=== PATIENT | female | born 1955 | race Caucasian/White ===

== ENCOUNTER 2021-08-01 00:28 | Emergency (ER) | payer OTHER ==
[~2021-08-01] VITALS: Ht 157.5 cm; Wt 78.5 kg
[2021-08-01 00:30] VITALS: BP 192/93
[2021-08-01] MEDS ORDERED: ONDANSETRON 4 MG/2 ML VIAL IVP ONE (00:45)
[2021-08-01] MEDS ORDERED: MORPHINE SULFATE 4 MG/ML SYR IVP ONE (00:45)
[2021-08-01 01:04] LABS: BASOPHILS % (AUTO) 0.2 % (0.0-2.0); EOSINOPHILS % (AUTO) 0.8 % (0.0-4.0); HEMATOCRIT 34.4 % (36-48); HEMOGLOBIN 11.7 g/dL (12.0-16.0); LYMPHOCYTES % (AUTO) 18.8 % (20.5-51.1); MEAN CORPUSCULAR HEMOGLOBIN 33 pg (27-31); MEAN CORPUSCULAR HGB CONC 34 g/dL (33-37); MEAN CORPUSCULAR VOLUME 96.6 fL (80-94); MONOCYTES # (AUTO) 0.3 K/uL (0.8-1.0); MONOCYTES % (AUTO) 6.4 % (1.7-9.3); NEUTROPHILS # (AUTO) 3.9 K/uL (1.8-7.7); NEUTROPHILS % (AUTO) 73.8 % (42.2-75.2); PLATELET COUNT (AUTO) 209 K/uL (140-450); RED BLOOD CELL COUNT(AUTO) 3.56 MIL/uL (4.20-5.40); RED CELL DISTRIBUTION WIDTH 13.2 % (11.6-13.7); WHITE BLOOD COUNT (AUTO) 5.3 K/uL (4.8-10.8)
[2021-08-01 01:13] LABS: ANION GAP 14.8 (8-16); CARBON DIOXIDE 23.4 mmol/L (21-32); CREATININE 1.3 mg/dL (0.6-1.3); POTASSIUM 4.2 mmol/L (3.5-5.1)
[2021-08-01 01:19] LABS: ALBUMIN 3.9 g/dL (3.4-5.0); BILIRUBIN,DIRECT 0.1 mg/dL (0.0-0.3); TOTAL BILIRUBIN 0.3 mg/dL (0.0-1.0)
[2021-08-01 02:26] LABS: APPEARANCE,URINE SL CLOUDY (CLEAR); BILIRUBIN,URINE NEGATIVE (NEGATIVE); BLOOD, URINE TRACE-I (NEGATIVE); COLOR,URINE YELLOW (YELLOW); LEUKOCYTE ESTERASE ,URINE TRACE (NEGATIVE); NITRITE, URINE NEGATIVE (NEGATIVE); PH,URINE 5.5 (5.0-9.0); UGLUCOSE NEGATIVE (NEGATIVE)
[2021-08-01 02:36] LABS: RBC,URINE 0-5 /HPF (0-5)
[2021-08-01] MEDS ORDERED: CEPH-588 PO (04:11)
[2021-08-01 04:26] VITALS: BP 166/59
[2021-08-09] MEDS ORDERED: PANT40EC56 PO (11:57)
[2021-08-09] MEDS ORDERED: ATOR20TA40 PO (11:57)
[2021-08-09] MEDS ORDERED: ASPI-1856 PO (11:57)
[2021-08-09] MEDS ORDERED: LISI20TA29 PO (11:57)
[2021-08-09] MEDS ORDERED: METO25TA PO (11:57)
[2021-08-09] MEDS ORDERED: AMOX-1000 PO (12:04)
== END 2021-08-01 04:26 | disposition home or self-care (01) ==
LOC: MED 00:28
DX: N39.0 Urinary tract infection, site not specified (principal); E11.9 Type 2 diabetes mellitus without complications; I10 Essential (primary) hypertension; Z98.890 Other specified postprocedural states
CPT/HCPCS: 36415; 71045; 76705; 80048; 80076; 81001; 83690; 84484; 85025; 87086; 93005; 96374; 96375; 99285; J2270; J2405; Q0092

== ENCOUNTER 2021-08-16 18:51 | Inpatient (IN) | payer OTHER, SELFPAY ==
[~2021-08-16] VITALS: Ht 157.5 cm; Wt 78.0 kg
[~2021-08-16 18:51] MED LIST: AMOX-1000 PO; ASPI-1856 PO; ATOR20TA40 PO; LISI20TA29 PO; METO25TA PO; PANT40EC56 PO
--- NOTE | 2021-08-16 19:01 | NUR ---
BIBA TO BED 1
--- NOTE | 2021-08-16 19:15 | NUR ---
Pt report given to JOSH LARES. Transfer of care at this time.
--- NOTE | 2021-08-16 19:20 | NUR ---
66 Y/O FEMALE BIBA FROM HOME CHEST PAIN X3 HOURS. PER EMS GAVE NITRO 0.2 TWICE AND 324 ASPIRIN. PAIN LEVEL WENT FROM 6/10 TO 4/10. FEVER 100.1F. DENIES V/D, ADMITS TO NAUSEA AND PRODUCTIVE COUGH. PT. RATES PAIN AT 6/10 ON THE PAIN SCALE AT THIS TIME. PT. ALSO STATES PAIN RADIATES TO BACK SIDE AND "FEELS LIKE I HAVE A BRUISE ON MY BACK." UPON ASSESSMENT, PT HAS SURIGCAL SCAR OF 5CM ON ABDOMEN WITH SEROUS FLUID. AAOX4;VSS MEDHX: DM, PNA, COPD, GALLBLADDER REMOVAL NKA
--- NOTE | 2021-08-16 19:20 | NUR ---
TAMMIE CRENSHAW AT BEDSIDE FOR MEDICAL EXAMINATION
--- NOTE | 2021-08-16 19:30 | NUR ---
PT. GIVEN COLD COMPRESS TO THE FOREHEAD, NECK AND ARMPITS TO HELP LOWER TEMPERATURE. WILL REASSESS TEMP. IN 30 MINS.
--- NOTE | 2021-08-16 19:57 | NUR ---
EKG AT BEDSIDE
--- NOTE | 2021-08-16 20:00 | NUR ---
LAB AT BEDSIDE
--- NOTE | 2021-08-16 20:02 | NUR ---
PER ERMD 12 LEAD WAS DONE ON PT AND CAME BACK SINUS ARRHYTHIMA AT 81 HR.
[2021-08-16] MEDS ORDERED: KETOROLAC 15 MG/ML VIAL IVP ONE (20:10)
--- NOTE | 2021-08-16 20:20 | NUR ---
PT. STATES "I CAN'T GO RIGHT NOW" WHEN ASKED ABOUT GIVING URINE SAMPLE
[2021-08-16 20:28] LABS: BASOPHILS % (AUTO) 0.1 % (0.0-2.0); EOSINOPHILS # (AUTO) 0.1 K/uL (0-0.4); EOSINOPHILS % (AUTO) 0.7 % (0.0-4.0); HEMATOCRIT 28.9 % (36-48); HEMOGLOBIN 9.5 g/dL (12.0-16.0); LYMPHOCYTES % (AUTO) 8.9 % (20.5-51.1); MEAN CORPUSCULAR HEMOGLOBIN 32 pg (27-31); MEAN CORPUSCULAR HGB CONC 33 g/dL (33-37); MONOCYTES # (AUTO) 0.6 K/uL (0.8-1.0); MONOCYTES % (AUTO) 5.7 % (1.7-9.3); NEUTROPHILS # (AUTO) 9.6 K/uL (1.8-7.7); NEUTROPHILS % (AUTO) 84.6 % (42.2-75.2); PLATELET COUNT (AUTO) 632 K/uL (140-450); RED BLOOD CELL COUNT(AUTO) 3.01 MIL/uL (4.20-5.40); RED CELL DISTRIBUTION WIDTH 12.6 % (11.6-13.7); WHITE BLOOD COUNT (AUTO) 11.3 K/uL (4.8-10.8)
--- NOTE | 2021-08-16 20:37 | NUR ---
RECHECKED ORAL TEMP. = 99.0
[2021-08-16 20:40] LABS: ALBUMIN 2.3 g/dL (3.4-5.0); ANION GAP 14.1 (8-16); CARBON DIOXIDE 26.3 mmol/L (21-32); CREATININE 0.9 mg/dL (0.6-1.3); POTASSIUM 4.4 mmol/L (3.5-5.1); TOTAL BILIRUBIN 0.2 mg/dL (0.0-1.0)
--- NOTE | 2021-08-16 20:46 | NUR ---
PT. AMBULATED TO BATHROOM WITH EVEN AND STEADY GAIT
--- NOTE | 2021-08-16 20:50 | NUR ---
URINE SAMPLE COLLECTED AND WALKED TO LAB
[2021-08-16 21:03] LABS: APPEARANCE,URINE CLEAR (CLEAR); BILIRUBIN,URINE 1+ (NEGATIVE); BLOOD, URINE NEGATIVE (NEGATIVE); COLOR,URINE YELLOW (YELLOW); LEUKOCYTE ESTERASE ,URINE NEGATIVE (NEGATIVE); NITRITE, URINE NEGATIVE (NEGATIVE); UGLUCOSE NEGATIVE (NEGATIVE)
[2021-08-16] MEDS ORDERED: FAMOTIDINE 20 MG/2 ML VIAL IVP ONE (21:20)
--- NOTE | 2021-08-16 21:29 | NUR ---
PT. TAKEN TO CT VIA ANTONIO
[2021-08-16] MEDS ORDERED: MORPHINE SULFATE 4 MG/ML SYR IVP ONE (22:30)
[2021-08-16] MEDS ORDERED: MORPHINE SULFATE 2 MG/ML SYR IVP PRN (22:45)
[2021-08-16] MEDS ORDERED: ONDANSETRON 4 MG/2 ML VIAL IVP PRN (22:45)
--- NOTE | 2021-08-16 22:45 | NUR ---
ELISA SWAB COLLECTED AND HANDED TO YAYA FROM LAB
[2021-08-16] MEDS ORDERED: PIPERACILLIN/TAZOBACTAM 3.375 GM VIAL IV ONE (23:31)
[2021-08-16] MEDS: PIPERACILLIN/TAZOBACTAM 3.375 GM in DEXTROSE 5% 50 ML IV SCH (23:43)
--- NOTE | 2021-08-17 01:38 | NUR ---
RECHECK ORAL TEMP = 98.8
--- NOTE | 2021-08-17 04:43 | NUR ---
RECHECKED ORAL TEMP = 99.3. GIVEN COLD COMPRESS TO THE FOREHEAD AND ARMPITS TO REDUCE TEMPERATURE
[2021-08-17] MEDS ORDERED: PIPERACILLIN/TAZOBACTAM 3.375 GM VIAL IV ONE (05:15)
[2021-08-17] MEDS: PIPERACILLIN/TAZOBACTAM 3.375 GM in DEXTROSE 5% 50 ML IV SCH (05:26)
--- NOTE | 2021-08-17 05:28 | NUR ---
LAB AT BEDSIDE
--- NOTE | 2021-08-17 05:49 | NUR ---
PT. AMBULATED TO BATHROOM WITH EVEN AND STEADY GAIT
--- NOTE | 2021-08-17 06:00 | NUR ---
CALLED DR. LONDONO TO UPDATE ON PT. TRENDING TEMPERATURE OF 99.6. NEW ORDERS GIVEN OF IVP TORADOL 30MG PRN Q6HRS
[2021-08-17] MEDS ORDERED: KETOROLAC 30 MG/ML VIAL ONE (06:04)
[2021-08-17] MEDS ORDERED: KETOROLAC 30 MG/ML VIAL IVP PRN ×2 (06:05→16:05)
[2021-08-17 06:27] LABS: ALBUMIN 2.1 g/dL (3.4-5.0); CARBON DIOXIDE 25.7 mmol/L (21-32); CHOL/HDL RATIO 3.1 (1-4.5); POTASSIUM 4.7 mmol/L (3.5-5.1); TOTAL BILIRUBIN 0.2 mg/dL (0.0-1.0)
[2021-08-17 06:38] LABS: BASOPHILS % (AUTO) 0.1 % (0.0-2.0); EOSINOPHILS # (AUTO) 0.1 K/uL (0-0.4); EOSINOPHILS % (AUTO) 1.1 % (0.0-4.0); HEMATOCRIT 25.9 % (36-48); HEMOGLOBIN 8.6 g/dL (12.0-16.0); LYMPHOCYTES % (AUTO) 10.3 % (20.5-51.1); MEAN CORPUSCULAR HEMOGLOBIN 32 pg (27-31); MEAN CORPUSCULAR HGB CONC 33 g/dL (33-37); MEAN CORPUSCULAR VOLUME 95.5 fL (80-94); MONOCYTES # (AUTO) 0.8 K/uL (0.8-1.0); MONOCYTES % (AUTO) 8.1 % (1.7-9.3); NEUTROPHILS # (AUTO) 7.8 K/uL (1.8-7.7); NEUTROPHILS % (AUTO) 80.4 % (42.2-75.2); PLATELET COUNT (AUTO) 459 K/uL (140-450); RED BLOOD CELL COUNT(AUTO) 2.72 MIL/uL (4.20-5.40); RED CELL DISTRIBUTION WIDTH 12.6 % (11.6-13.7); WHITE BLOOD COUNT (AUTO) 9.7 K/uL (4.8-10.8)
--- NOTE | 2021-08-17 06:47 | NUR ---
RECHECKED ORAL TEMP. = 98.5
--- NOTE | 2021-08-17 07:12 | NUR ---
Report and continuation of care received from ARNAUD Escalera.
--- NOTE | 2021-08-17 07:12 | NUR ---
REPORT AND TRANSFER OF CARE ENDORSED TO ARNAUD CASAS.
[2021-08-17] MEDS ORDERED: POTASSIUM CHLORIDE 10 MEQ TABER PO PRN (08:00)
[2021-08-17] MEDS ORDERED: DOCUSATE SODIUM 100 MG GELCAP PO PRN (08:00)
[2021-08-17] MEDS ORDERED: ZOLPIDEM 5 MG TAB PO PRN (08:00)
[2021-08-17] MEDS ORDERED: SODIUM PHOS / POTASSIUM PHOS 1 PKT PDR PO PRN (08:00)
[2021-08-17] MEDS ORDERED: ACETAMINOPHEN 325 MG TAB PO PRN (08:00)
[2021-08-17] MEDS ORDERED: LORazepam 2 MG/ML VIAL IM/IVP PRN (08:00)
[2021-08-17] MEDS ORDERED: HYDROcodone/APAP 5/325 MG 1 TAB TAB PO PRN (08:00)
[2021-08-17] MEDS ORDERED: MAG SULF 2000 MG/WATER PREMIX 50 ML IV PRN (08:00)
--- NOTE | 2021-08-17 08:32 | NUR ---
Spoke with Epifanio, Nuclear Medicine from [facility] who states to keep her NPO, opioid for pain control OK. ETA for scan this afternoon to evening.
[2021-08-17] MEDS: DEXT 5% / NACL 0.45% 1,000 ML IV SCH ×2 (08:47→18:02)
--- NOTE | 2021-08-17 09:30 | NUR ---
Patient with "dry, lingering cough." Advised to cough up secretions as needed.
[2021-08-17 09:59] LABS: PROTHROMBIN TIME 10.7 secs (10.8-13.4)
[2021-08-17 10:09] LABS: CHOL/HDL RATIO 3.2 (1-4.5); FREE T4 (FREE THYROXINE) 1.2 ng/dL (0.76-1.46); PHOSPHORUS 3.9 mg/dL (2.5-4.9); THYROID STIMULATING HORMONE 1.84 uIU/mL (0.34-3.74)
[2021-08-17] MEDS ORDERED: DEXTROSE 50% 50 ML SYR IVP PRN (10:10)
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
--- NOTE | 2021-08-17 10:45 | NUR ---
Oral T 99.3
--- NOTE | 2021-08-17 11:02 | NUR ---
Patient disconnected from clinical research monitor and IVF, ambulated to restroom with steady/even gait.
--- NOTE | 2021-08-17 11:35 | NUR ---
Patient states 6/10 pain while coughing; requested Morphine IVP. PRN orders to be given.
--- NOTE | 2021-08-17 11:55 | NUR ---
Abdominal pad applied to surgical wound; reinforced with abdominal binder. Patient teaching of coughing firmly and holding abd site when coughing; verbalizes understanding.
[2021-08-17] MEDS: BLOOD GLUCOSE MONITORING 1 DEV DEV FS SCH ×3 (11:59→21:00)
[2021-08-17] MEDS: MORPHINE SULFATE 2 MG/ML SYR IVP PRN ×2 (11:59→23:14)
--- NOTE | 2021-08-17 12:00 | NUR ---
+ relief to pain; remains 0/10 at this time.
[2021-08-17] MEDS ORDERED: VANCOMYCIN PER PHARMACY MC PRN (12:20)
[2021-08-17] MEDS ORDERED: MEROPENEM 1,000 MG in NACL 0.9% 100 ML IV SCH (13:30)
[2021-08-17] MEDS ORDERED: MEROPENEM 1,000 MG VIAL IV ONE (14:37)
[2021-08-17] MEDS: MEROPENEM 1,000 MG in NACL 0.9% 100 ML IV SCH ×2 (15:00→21:36)
--- NOTE | 2021-08-17 15:29 | NUR ---
RECEIVED REPORT FROM ER NURSE. AWAITING FOR PATIENT TO ARRIVE.
--- NOTE | 2021-08-17 15:30 | NUR ---
Report given to ARNAUD Vitale. ETA 5-10 minutes
--- NOTE | 2021-08-17 15:45 | NUR ---
RECEIVED PATIENT FROM ER NURSE. PT ADMITTED FOR POST SURGICAL INFECTION. AOX4, ABLE TO MAKE NEEDS KNOWN. RESPIRATIONS EVEN AND UNLABORED. NO DISTRESS NOTED. SKIN IS NON-INTACT. NOTED SURGICAL SITE ON ABDOMEN WITH CLOUDY DRAINAGE NOTED. REINFORCED WITH DRESSING. IV SITE ON LFA 22G INTACT AND PATENT INFUSING FLUIDS WELL. ABD IS SOFT, FLAT, AND NON-DISTENDED. BOWEL SOUNDS ACTIVE IN ALL QUADRANTS. ABLE TO AMBULATE. PLAN OF CARE DISCUSSED. SAFETY PRECAUTIONS IN PLACE. CALL LIGHT WITHIN REACH. WILL CONTINUE TO MONITOR.
--- NOTE | 2021-08-17 15:50 | NUR ---
Patient will be admitted to care of Telemetry. Admited to Dr. Pulliam. Will go to room 120B. Belongings list completed. Report to ARNAUD Vitale.
[2021-08-17 16:00] VITALS: BP 125/59
[2021-08-17] MEDS: VANCOMYCIN 1,000 MG in DEXTROSE 5% 250 ML IV SCH (16:00)
--- NOTE | 2021-08-17 16:31 | NUR ---
PATIENT COMPLAINED OF FERGUSON 3/10. ADMINISTERED PRN PAIN MEDICATIONS PER MD ORDERED.
[2021-08-17] MEDS: INSULIN LISPRO SLIDING SCALE 100 UNITS/ML VIAL SUBQ PRN (17:44)
--- NOTE | 2021-08-17 19:30 | NUR ---
ENDORSED TO WORD PROCESSOR TECHNICIAN NURSE FOR CONTINUITY OF CARE. PT IS STABLE.
[2021-08-17 20:00] VITALS: BP 107/59
[2021-08-17] MEDS: METOPROLOL 25 MG TAB PO SCH (21:37)
[2021-08-18] VITALS: BP 108/59
--- NOTE | 2021-08-18 02:38 | NUR ---
PATIENT AWAKE ALERT PATIENT NPO HAS IVF INFUSING AT 100 HOUR D51/2 NS LUNG DIMINISH HAS COUGH. HAS HEAL WOUND WITH SOME DRAINAGE AT UPPER ABDOMEN. HAS DRSG TO SITE. PATIENT SAID WHEN COUGH HAS PAIN. MEDICATED WITH MORPHINE 2 MG IVP. AT 2314. BLOOD SUGAR 127 NO COVERAGE. NO DISTRESS NOTED PATIENT ON MONITOR SINUS.
[2021-08-18 04:00] VITALS: BP 110/62
[2021-08-18] MEDS: MORPHINE SULFATE 2 MG/ML SYR IVP PRN ×2 (05:20→19:07)
[2021-08-18] MEDS: DEXT 5% / NACL 0.45% 1,000 ML IV SCH ×2 (05:20→14:10)
[2021-08-18 06:16] LABS: BASOPHILS % (AUTO) 0.2 % (0.0-2.0); EOSINOPHILS # (AUTO) 0.2 K/uL (0-0.4); EOSINOPHILS % (AUTO) 2.1 % (0.0-4.0); HEMATOCRIT 25.3 % (36-48); HEMOGLOBIN 8.4 g/dL (12.0-16.0); LYMPHOCYTES # (AUTO) 1.1 K/uL (2.5-16.5); LYMPHOCYTES % (AUTO) 15.3 % (20.5-51.1); MEAN CORPUSCULAR HEMOGLOBIN 32 pg (27-31); MEAN CORPUSCULAR HGB CONC 33 g/dL (33-37); MEAN CORPUSCULAR VOLUME 96.8 fL (80-94); MONOCYTES # (AUTO) 0.6 K/uL (0.8-1.0); MONOCYTES % (AUTO) 8.7 % (1.7-9.3); NEUTROPHILS # (AUTO) 5.5 K/uL (1.8-7.7); NEUTROPHILS % (AUTO) 73.7 % (42.2-75.2); PLATELET COUNT (AUTO) 511 K/uL (140-450); RED BLOOD CELL COUNT(AUTO) 2.61 MIL/uL (4.20-5.40); RED CELL DISTRIBUTION WIDTH 12.7 % (11.6-13.7); WHITE BLOOD COUNT (AUTO) 7.4 K/uL (4.8-10.8)
[2021-08-18 06:28] LABS: ALBUMIN 2.1 g/dL (3.4-5.0); ANION GAP 14.6 (8-16); CARBON DIOXIDE 23.7 mmol/L (21-32); CREATININE 0.9 mg/dL (0.6-1.3); MAGNESIUM 1.7 mg/dL (1.8-2.4); POTASSIUM 4.3 mmol/L (3.5-5.1); TOTAL BILIRUBIN 0.2 mg/dL (0.0-1.0)
--- NOTE | 2021-08-18 07:20 | NUR ---
RECEIVED PATIENT FROM PENSION ADVISER NURSE. PT LAYING ON BED AOX4, ABLE TO MAKE NEEDS KNOWN. RESPIRATIONS EVEN AND UNLABORED. NO DISTRESS NOTED. SKIN IS NON-INTACT. NOTED SURGICAL SITE ON ABDOMEN WITH MINIMAL CLOUDY DRAINAGE NOTED. REINFORCED WITH DRESSING. IV SITE ON L WRIST 20G INTACT AND PATENT INFUSING FLUIDS WELL. ABD IS SOFT, FLAT, AND NON-DISTENDED. BOWEL SOUNDS ACTIVE IN ALL QUADRANTS. ABLE TO AMBULATE. PLAN OF CARE DISCUSSED. SAFETY PRECAUTIONS IN PLACE. CALL LIGHT WITHIN REACH
[2021-08-18] MEDS: BLOOD GLUCOSE MONITORING 1 DEV DEV FS SCH ×4 (07:30→21:46)
[2021-08-18 08:00] VITALS: BP 162/78
[2021-08-18] MEDS: ASPIRIN 81 MG TAB.CHEW PO SCH (09:00)
--- NOTE | 2021-08-18 09:15 | NUR ---
PATIENT HAS BEEN SCREENED AND CATEGORIZED HIGH NUTRITION RISK. PATIENT WILL BE SEEN WITHIN 1-2 DAYS OF ADMISSION. 08/18/[address]
[2021-08-18] MEDS: METOPROLOL 25 MG TAB PO SCH ×2 (09:25→21:45)
[2021-08-18] MEDS: ATORVASTATIN 20 MG TAB PO SCH (09:25)
[2021-08-18] MEDS: lisinopriL 20 MG TAB PO SCH (09:25)
[2021-08-18] MEDS: MEROPENEM 1,000 MG in NACL 0.9% 100 ML IV SCH ×2 (09:26→21:46)
--- NOTE | 2021-08-18 09:30 | NUR ---
WOUND CARE EVALUATION NOTE: WOUND ASSESSMENT DONE TO THIS 66 Y/O PT. AAX4. SURGICAL WOUND RUQ ABD SURGICAL WOUND FULL THICKNESS SKIN LOSS 0.5X1.5X2CM 100% GRANULATING MOIST WOUND BED, MODERATE AMOUNT LIGHT YELLOW SEROUS DRAINAGE, NO ODOR, LIVAN WOUND SKIN DRY HEALED SCAR TISSUE. POC DISCUSSED WITH PRIMARY RN AND PT. PT. VERBALIZES UNDERSTANDING. POC DISCUSSED WITH DR. MCCOLLUM, PENDING SURGEON TO DRAIN FLUIDS. RECOMMENDATION: -CLEANSE RUQ ABDOMINAL SURGICAL WOUND WITH NS, APT DRY, PACK LOOSELY WITH OIL EMULSION DRESSING AND COVER WITH ISLAND DRESSING QD AND PRN IF SOILING
--- NOTE | 2021-08-18 09:37 | NUR ---
PT LAYING ON BED NO COMPLAINS, MORNING MEDICATION WAS ADMINISTRATED TOLERATED WELL. WOUND DRESSING CHANGED BY WOUND CARE NURSE, RADIOLOGY CALLED AND ASKED TO HOLD ASPIRIN SINCE PT SUPPOSED TO GET DRAINAGE PROCEDURE
[2021-08-18] MEDS: VANCOMYCIN 1,000 MG in DEXTROSE 5% 250 ML IV SCH (10:17)
--- NOTE | 2021-08-18 11:25 | NUR ---
PT SITTING ON BED NO COMPLAINS AT THIS TIME , NO SOD NOTED, ALL SAFETY MEASURES ON PLACE CALLS LIGHT WITHIN REACH
[2021-08-18 12:00] VITALS: BP 161/71
[2021-08-18] MEDS: INSULIN LISPRO SLIDING SCALE 100 UNITS/ML VIAL SUBQ PRN (12:46)
--- NOTE | 2021-08-18 13:05 | NUR ---
PT WENT TO CT FOR PLACEMENT OF DRAINAGE
[2021-08-18] MEDS ORDERED: LIDOCAINE MPF 1% 5 ML ONE ×2 (13:23→14:10)
[2021-08-18] MEDS ORDERED: MIDAZOLAM 2 MG/2 ML VIAL ONE (13:34)
[2021-08-18] MEDS ORDERED: fentaNYL citrate 0.05 MG/ML VIAL ONE (13:35)
--- NOTE | 2021-08-18 13:40 | NUR ---
LEAD FRONT DESK AGENT DOLORES MANDY CALL FOR ASSISTANCE WITH JIMENA STRICKLAND MODERATED SEDATION FOR RT FLANK DRAINADE TUBE BY IRMD DR LAL. PT AAOX4, VSS, NSR W/O ECT, IV RT ARM 22 GA PAINTED, PAIN 02/11. CONSENT SIGNED -TIME OUT CALLED AT 1347, IR/Diane RAZO DR, RN NOLAN,Christopher, U/S JOSE HURST, LEAD FRONT DESK AGENT DOLORES MANDY, -14:00-0.5 VERSED IVPS-NADR AT THIS TIME ,1405-12.5 FENTANYL IVP NADR AT THIS TIME -176/89 BP, 100%, 79P, 20RR, 14:10 174/82BP, 99%, 72P, 18RR, -14:20 165/72BP, 100% 2L NC ,67P, 18RR PT AROUSABLE, C/O PAIN 01/11. 02 2L VIA N/C, CONTINUOUS MONITORING. -1411-0.5 VERSED IVPS-NADR AT THIS TIME, 1415-12.5 FENTANYL IVP NADR AT THIS TIME. -14:25 149/69BP, 66, 99% 2L NC, 66P, 16RR NSR W/O ECT. -14:35 103/64BP, 67P, 97% -Wound covered with dressing. Physician informed. -14:45 141/64BP, 96% R/A, 71P, 17RR -CONTINUOUS MONITORING Patient appears to be resting comfortably in bed. Vital Signs within normal limits. Respirations even and unlabored.Pt transferred to Tele via BED REPORT GIVEN TO RN. .
--- NOTE | 2021-08-18 14:13 | NUR ---
08/18/21 RD INITIAL ASSESSMENT COMPLETED PLEASE REFER TO NUTRITION ASSESSMENT UNDER CARE ACTIVITY FOR ESTIMATED NUTRITIONAL NEEDS. 1. CONTINUE NOTHING BY MOUTH MEDICALLY APPROPRIATE 2. IF/WHEN PT IS MEDICALLY STABLE CONSIDER NA2GM DIET 3. RD TO FOLLOW-UP 2-3 DAYS, HIGH RISK ASHA EISENBERG, RD
--- NOTE | 2021-08-18 14:30 | NUR ---
SPECIMEN SENT TO LAB WITH INSPECTOR FILTER TIP
--- NOTE | 2021-08-18 15:20 | NUR ---
PT CAME BACK FROM PROCEDURES, STABLE NO SOD NOTED, A DRAIANAGE WAS PLACED DRAINING GOOD, PT STABLE NO COMPLAINS, ALL SAFETY MEASURES ON PLACE CALLS LIGHT WITHIN REACH
[2021-08-18 16:00] VITALS: BP 147/89
[2021-08-18] MEDS ORDERED: MIDAZOLAM 2 MG/2 ML VIAL IVP ONE (17:00)
[2021-08-18] MEDS ORDERED: fentaNYL citrate 0.05 MG/ML VIAL IVP ONE (17:00)
[2021-08-18] MEDS ORDERED: LIDOCAINE MPF 1% 10 MG/ML VIAL INJ SCH ×2 (17:00)
[2021-08-18] MEDS ORDERED: INSULIN LISPRO SLIDING SCALE 100 UNITS/ML VIAL SUBQ PRN (17:10)
[2021-08-18] MEDS ORDERED: DEXTROSE 50% 50 ML SYR IVP PRN (17:10)
--- NOTE | 2021-08-18 17:58 | NUR ---
PT IN BED NO COMPLAINS, ENGINEERING DEPARTMENT CHAIR SOD NOTED, PT ASKED FOR FOOD TALKED TO DR MCCOLLUM, PUT A DIET ORDER, PT GOT FOOD EATING , ALL SAFETY MEASURES ON PLACE CALLS LIGHT WITHIN REACH
--- NOTE | 2021-08-18 19:00 | NUR ---
PATIENT ALERT AND ORIENTED X 4. NONCOMPLIANT DURING CARE. ATTEMPTING TO SELF AMBULATE WITH UNSTEADY GAIT. RN REQUEST TO NURSING LEARNING DISABILITIES RESOURCE TEACHER FOR SITTER AT BEDSIDE. PT ATTEMPTING TO SELF AMBULATE WITH UNSTEADY GAIT. POORLY REDIRECTED. AOX4, ABLE TO MAKE NEEDS KNOWN. RESPIRATIONS EVEN AND UNLABORED. NOTED SURGICAL SITE ON ABDOMEN WITH MINIMAL CLOUDY DRAINAGE NOTED. REINFORCED WITH DRESSING. IV SITE ON L WRIST 20G DISPLACED. PATIENT STATED SHE ACCIDENTALLY PULLED IT OUT. NEW IV 22G TO RIGHT FOREARM INTACT. ABDOMEN IS SOFT, AND NON-DISTENDED. BOWEL SOUNDS ACTIVE IN ALL QUADRANTS. PATIENT ENCOURAGED TO REQUEST FOR ASSISTANCE +TO AMBULATE. PLAN OF CARE DISCUSSED. SAFETY PRECAUTIONS IN PLACE. FALL AND SAFETY INTERVENTIONS ONGOING. CALL LIGHT WITHIN REACH. NO ACUTE DISTRESS NOTED.
--- NOTE | 2021-08-18 19:11 | NUR ---
PT COMPLAINS ABOUT PAIN GOT MEDICATED PRN ORDER. DRAINAGE DARNING, ALL SAFETY MEASURES ON PLACE CALLS LIGHT WITHIN REACH
[2021-08-18] MEDS: ALBUTEROL SULFATE/IPRATROPIU 3 ML SOL IH PRN (19:51)
--- NOTE | 2021-08-18 19:55 | NUR ---
FULL BEDSIDE REPORT GIVEN TO SYSTEMS CHECKOUT MECHANIC NURSE
[2021-08-18 20:00] VITALS: BP 142/86
[2021-08-19] VITALS: BP 138/84
[2021-08-19] MEDS: DEXT 5% / NACL 0.45% 1,000 ML IV SCH ×2 (00:10→11:02)
[2021-08-19] MEDS: ONDANSETRON 4 MG/2 ML VIAL IVP PRN ×3 (03:20→16:30)
[2021-08-19] MEDS: VANCOMYCIN 1,000 MG in DEXTROSE 5% 250 ML IV SCH (03:49)
[2021-08-19 04:00] VITALS: BP 136/82
--- NOTE | 2021-08-19 05:00 | NUR ---
RN REPORTED TO NURSING COMMERCIAL MAKEUP ARTIST THAT PATIENT IS ALERT AND ORIENTED X 4 AND REFUSED ALL AM LABS DRAW X 3. RN EDUCATED PATIENT TO PHYSICIAN ORDERS, PLAN CARE AND THE NEED FOR COMPLIANCE. PATIENT CONTINUE TO BE NONCOMPLIANT AND RESISTANCE OF CARE. PATIENT REDIRECTED BY STAFF FOR SAFETY WITH SITTER AT BEDSIDE. RN REPORTED TO CHARGE NURSE PATIENT REFUSED ALL AM LABS X 3. FALL AND SAFETY INTERVENTIONS CONTINUED. STAFF CONTINUE TO ENCOURAGE PATIENT FOR MEDICAL COMPLIANCE WITH POOR RESULTS. RESPIRATION EVEN AND UNLABORED, ACYANOTIC, SKIN WARM AND DRY VITAL SIGNS WITHIN PARAMETER. NO ACUTE DISTRESS NOTED.
--- NOTE | 2021-08-19 07:25 | NUR ---
RECEIVED PATIENT FROM COLORING ROOM WORKER NURSE. PT LAYING ON BED AOX4, ABLE TO MAKE NEEDS KNOWN. RESPIRATIONS EVEN AND UNLABORED. NO DISTRESS NOTED. SKIN IS NON-INTACT. NOTED SURGICAL SITE ON ABDOMEN , A DRAINAGE TUBE FROM THE LEFT FLANK DRAINING. IV SITE ON L WRIST 20G INTACT AND PATENT INFUSING FLUIDS WELL. ABD IS SOFT, FLAT, AND NON-DISTENDED. BOWEL SOUNDS ACTIVE IN ALL QUADRANTS. ABLE TO AMBULATE. PLAN OF CARE DISCUSSED. PT REFUSED TO GET BLOOD WORK DONE IN THE MORNING, SAFETY PRECAUTIONS IN PLACE. CALL LIGHT WITHIN REACH
[2021-08-19] MEDS: BLOOD GLUCOSE MONITORING 1 DEV DEV FS SCH ×2 (07:58→11:42)
[2021-08-19 08:00] VITALS: BP 131/69
[2021-08-19] MEDS: ATORVASTATIN 20 MG TAB PO SCH (08:08)
[2021-08-19] MEDS: ASPIRIN 81 MG TAB.CHEW PO SCH (08:08)
[2021-08-19] MEDS: lisinopriL 20 MG TAB PO SCH (08:09)
[2021-08-19] MEDS: MEROPENEM 1,000 MG in NACL 0.9% 100 ML IV SCH (08:10)
[2021-08-19] MEDS: METOPROLOL 25 MG TAB PO SCH (08:10)
--- NOTE | 2021-08-19 09:05 | NUR ---
PATIENT IN BED NO COMPLAINS, NO SOB NOTED. MORNING MEDICATION GOT ADMINISTRATED, TOLERATED WELL. DRAINGE DRAINING ALL SAFETY MEASURES ON PLACE CALL LIGHT WITHIN REACH.
[2021-08-19 09:12] LABS: BASOPHILS % (AUTO) 0.3 % (0.0-2.0); EOSINOPHILS # (AUTO) 0.1 K/uL (0-0.4); EOSINOPHILS % (AUTO) 1.5 % (0.0-4.0); HEMATOCRIT 26.6 % (36-48); HEMOGLOBIN 8.9 g/dL (12.0-16.0); LYMPHOCYTES # (AUTO) 1.4 K/uL (2.5-16.5); MEAN CORPUSCULAR HEMOGLOBIN 32 pg (27-31); MEAN CORPUSCULAR HGB CONC 34 g/dL (33-37); MEAN CORPUSCULAR VOLUME 95.8 fL (80-94); MONOCYTES # (AUTO) 0.7 K/uL (0.8-1.0); MONOCYTES % (AUTO) 8.6 % (1.7-9.3); NEUTROPHILS # (AUTO) 5.8 K/uL (1.8-7.7); NEUTROPHILS % (AUTO) 72.6 % (42.2-75.2); PLATELET COUNT (AUTO) 441 K/uL (140-450); RED BLOOD CELL COUNT(AUTO) 2.78 MIL/uL (4.20-5.40); RED CELL DISTRIBUTION WIDTH 12.9 % (11.6-13.7)
[2021-08-19 09:20] LABS: ANION GAP 15.1 (8-16); MAGNESIUM 1.8 mg/dL (1.8-2.4); POTASSIUM 4.1 mmol/L (3.5-5.1); TOTAL BILIRUBIN 0.1 mg/dL (0.0-1.0)
--- NOTE | 2021-08-19 11:30 | NUR ---
PATIENT IN BED NO COMPLAINS, NO SOB NOTED. ALL SAFETY MEASURES ON PLACE CALL LIGHT WITHIN REACH.
[2021-08-19 12:00] VITALS: BP 135/79
[2021-08-19] MEDS: MORPHINE SULFATE 2 MG/ML SYR IVP PRN ×2 (12:46→17:08)
[2021-08-19] MEDS ORDERED: NON ADHERENT DRESSING TP SCH (13:00)
[2021-08-19] MEDS ORDERED: CIPR500T4 PO (13:52)
--- NOTE | 2021-08-19 13:53 | NUR ---
PATIENT IN BED NO SOB NOTED. COMPLIANED ABOUT PAIN GOT MEDICATED PRN ORDER, ATE LUNCH, ALL NEEDS MET AT THIS TIME, ALL SAFETY MEASURES ON PLACE CALL LIGHT WITHIN REACH.
--- NOTE | 2021-08-19 15:56 | NUR ---
PATIENT IN BED NO SOB NOTED. NO COMPLINES, ALL NEEDS MET AT THIS TIME,PT WILL BE DISCHARGE ALL SAFETY MEASURES ON PLACE CALL LIGHT WITHIN REACH.
[2021-08-19 15:58] VITALS: BP 128/74
[2021-08-19 16:00] VITALS: BP 138/67
--- NOTE | 2021-08-19 16:25 | NUR ---
PT IN BNED NO COMPLAINS AT THIS TIME, PT GOT DISCHARGE PACKET AND DISCHARGE EDUCATION, PT GOT EDUCATED HOW TO CLEAN HER SURGICAL WOUND PROVIDED SUPPLIES WELL FOR 7 DAYS, PT VERBALIZE UNDERSTANDING .
--- NOTE | 2021-08-19 17:10 | NUR ---
PT IN BED NO COMPLAINS AT THIS TIME,PT GOT DISCHARGED, IV REMOVED BLEEDING CONTROLLED, ID BAND REMOVED, FAMILY MEMBER PICKING UP.
[2021-08-19] MEDS: ALBUTEROL SULFATE/IPRATROPIU 3 ML SOL IH PRN (19:37)
--- NOTE | 2021-08-19 21:30 | NUR ---
PT FAMILY MEMBER HERE TO COMMERCIAL OR INSTITUTIONAL CLEANER PT AT THIS TIME. PT IS DRESSED WITH BELONGINGS PACKED UP AND READY TO GO. PT HAS EDITH DRAINED INTACT WITH MINIMAL (ABOUT 20MLS) OF SEROSANGUINEOUS DRAINAGE. V/S STABLE, PT REMINDED HOW TO MANAGE THE EDITH DRAIN. SHE LEFT VIA W/C WITH BELONGINGS IN HAND.
[2021-08-20] MEDS ORDERED: METR500T1 PO (07:32)
== END 2021-08-19 20:30 | disposition home or self-care (01) | DRG 372 ==
LOC: MED 18:51 → MTU 22:47 → MED 22:47 → MTU 08-17 14:50
PROVIDERS: ADMIT Family Medicine; ATTEND Family Medicine
PROC: 0D9 Gastrointestinal System, Drainage (ICD-10-PCS; principal; 2021-08-18)
DX: K65.1 Peritoneal abscess (principal); E44.1 Mild protein-calorie malnutrition; R71.0 Precipitous drop in hematocrit; I10 Essential (primary) hypertension; E11.9 Type 2 diabetes mellitus without complications; N20.0 Calculus of kidney; K44.9 Diaphragmatic hernia without obstruction or gangrene; Z20.822 Contact with and (suspected) exposure to COVID-19; Z79.82 Long term (current) use of aspirin; Z79.899 Other long term (current) drug therapy; Z90.49 Acquired absence of other specified parts of digestive tract; Z98.84 Bariatric surgery status
CPT/HCPCS: 36415; 71045; 75989; 77012; 78445; 80053; 80202; 81003; 82150; 82948; 83036; 83690; 83735; 83880; 84100; 84439; 84443; 84484; 85025; 85610; 85730; 87040; 87081; 93005; 94640; 96365; 96366; 96375; 99285; J1815; J1885; J2001; J2185; J2250; J2270; J2405; J2543; J3010; J3370; J3490; J7060; Q0092; Q9967

== ENCOUNTER 2021-09-04 21:00 | Emergency (ER) | payer OTHER ==
[~2021-09-04] VITALS: Ht 160 cm; Wt 72.1 kg
[~2021-09-04 21:00] MED LIST changes: -AMOX-1000 PO; -ASPI-1856 PO; -ATOR20TA40 PO; +CIPR500T4 PO; -LISI20TA29 PO; -METO25TA PO; +METR500T1 PO; -PANT40EC56 PO
[2021-09-04 21:10] VITALS: BP 194/80
[2021-09-04] MEDS ORDERED: ALUMINUM HYD/MAG/SIMETHICONE 30 ML, DICYCLOMINE HCL LIQUID 20 MG, LIDOCAINE VISCOUS 2% ... PO ONE ×3 (21:15)
--- NOTE | 2021-09-04 21:15 | NUR ---
PAMELA WELCH VIA GURNEY TO BED 04.
[2021-09-04 21:35] LABS: BASOPHILS % (AUTO) 0.4 % (0.0-2.0); EOSINOPHILS # (AUTO) 0.1 K/uL (0-0.4); EOSINOPHILS % (AUTO) 1.7 % (0.0-4.0); HEMATOCRIT 27.3 % (36-48); HEMOGLOBIN 9.1 g/dL (12.0-16.0); LYMPHOCYTES # (AUTO) 1.4 K/uL (2.5-16.5); LYMPHOCYTES % (AUTO) 24.9 % (20.5-51.1); MEAN CORPUSCULAR HEMOGLOBIN 32 pg (27-31); MEAN CORPUSCULAR HGB CONC 33 g/dL (33-37); MEAN CORPUSCULAR VOLUME 94.8 fL (80-94); MONOCYTES # (AUTO) 0.4 K/uL (0.8-1.0); MONOCYTES % (AUTO) 6.4 % (1.7-9.3); NEUTROPHILS # (AUTO) 3.6 K/uL (1.8-7.7); NEUTROPHILS % (AUTO) 66.6 % (42.2-75.2); PLATELET COUNT (AUTO) 265 K/uL (140-450); RED BLOOD CELL COUNT(AUTO) 2.88 MIL/uL (4.20-5.40); RED CELL DISTRIBUTION WIDTH 13.6 % (11.6-13.7); WHITE BLOOD COUNT (AUTO) 5.5 K/uL (4.8-10.8)
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
[2021-09-04] MEDS ORDERED: ALUMINUM HYD/MAG/SIMETHICONE 30 ML UDC ONE (21:41)
[2021-09-04] MEDS ORDERED: DICYCLOMINE HCL LIQUID 10 MG/5 ML UDC ONE (21:41)
[2021-09-04 21:48] LABS: ANION GAP 13.1 (8-16); CARBON DIOXIDE 24.7 mmol/L (21-32); CREATININE 1.1 mg/dL (0.6-1.3); POTASSIUM 4.8 mmol/L (3.5-5.1); TOTAL BILIRUBIN 0.4 mg/dL (0.0-1.0)
--- NOTE | 2021-09-04 23:41 | NUR ---
CT CONSENT FORM SIGNED AND OBTAIN FROM PT
--- NOTE | 2021-09-04 23:52 | NUR ---
PT TAKEN TO CT
--- NOTE | 2021-09-05 00:14 | NUR ---
PT BROUGHT BACK FROM CT
--- NOTE | 2021-09-05 00:35 | NUR ---
ADMINISTERED ERMD MED ORDERS
[2021-09-05] MEDS ORDERED: ASPIRIN 81 MG TAB.CHEW PO SCH (03:00)
[2021-09-05 03:30] VITALS: BP 194/80
--- NOTE | 2021-09-05 03:31 | NUR ---
Patient does not wish to proceed with medical care recommended by DR ALSTON. Patient given information related to possible complications, up to and including , which could occur as a result of leaving hospital at this time. Patient verbalizes understanding of risks involved leaving against medical advice. Patient has signed AMA form.
== END 2021-09-05 03:31 | disposition left against medical advice (07) ==
LOC: MED 21:00
DX: R07.9 Chest pain, unspecified (principal); R10.13 Epigastric pain; J44.9 Chronic obstructive pulmonary disease, unspecified; E11.9 Type 2 diabetes mellitus without complications; I10 Essential (primary) hypertension; Z90.49 Acquired absence of other specified parts of digestive tract; Z79.899 Other long term (current) drug therapy; Z98.84 Bariatric surgery status
CPT/HCPCS: 36415; 74177; 80053; 81002; 83690; 84484; 85025; 93005; 99285; Q9967

== ENCOUNTER 2021-09-06 20:14 | Emergency (ER) | payer OTHER ==
[~2021-09-06] VITALS: Ht 157.5 cm; Wt 26.8 kg
[2021-09-06 20:24] VITALS: BP 181/76
--- NOTE | 2021-09-06 20:36 | NUR ---
Dr. Waite examining patient.
[2021-09-06 22:03] LABS: APPEARANCE,URINE HAZY (CLEAR); BILIRUBIN,URINE 1+ (NEGATIVE); BLOOD, URINE NEGATIVE (NEGATIVE); COLOR,URINE YELLOW (YELLOW); LEUKOCYTE ESTERASE ,URINE TRACE (NEGATIVE); NITRITE, URINE NEGATIVE (NEGATIVE); UGLUCOSE NEGATIVE (NEGATIVE)
[2021-09-06 22:04] LABS: BASOPHILS % (AUTO) 0.4 % (0.0-2.0); EOSINOPHILS # (AUTO) 0.1 K/uL (0-0.4); EOSINOPHILS % (AUTO) 1.7 % (0.0-4.0); HEMATOCRIT 29.3 % (36-48); HEMOGLOBIN 9.8 g/dL (12.0-16.0); LYMPHOCYTES # (AUTO) 1.5 K/uL (2.5-16.5); LYMPHOCYTES % (AUTO) 26.4 % (20.5-51.1); MEAN CORPUSCULAR HEMOGLOBIN 32 pg (27-31); MEAN CORPUSCULAR HGB CONC 34 g/dL (33-37); MEAN CORPUSCULAR VOLUME 94.7 fL (80-94); MONOCYTES # (AUTO) 0.3 K/uL (0.8-1.0); MONOCYTES % (AUTO) 4.9 % (1.7-9.3); NEUTROPHILS # (AUTO) 3.8 K/uL (1.8-7.7); NEUTROPHILS % (AUTO) 66.6 % (42.2-75.2); PLATELET COUNT (AUTO) 291 K/uL (140-450); RED CELL DISTRIBUTION WIDTH 13.9 % (11.6-13.7); WHITE BLOOD COUNT (AUTO) 5.7 K/uL (4.8-10.8)
[2021-09-06 22:35] LABS: ALBUMIN 3.5 g/dL (3.4-5.0); ANION GAP 14.4 (8-16); CARBON DIOXIDE 23.5 mmol/L (21-32); CREATININE 1.1 mg/dL (0.6-1.3); POTASSIUM 3.9 mmol/L (3.5-5.1); TOTAL BILIRUBIN 0.5 mg/dL (0.0-1.0)
[2021-09-06 23:04] LABS: RBC,URINE 0-5 /HPF (0-5)
[2021-09-07] MEDS ORDERED: NACL 0.9% 1,000 ML IV ONE (00:40)
[2021-09-07] MEDS ORDERED: CLONIDINE HYDROCHLORIDE 0.1 MG TAB PO ONE (00:40)
[2021-09-07] MEDS ORDERED: cefTRIAXone 1,000 MG VIAL ONE (00:53)
[2021-09-07] MEDS ORDERED: MAGNESIUM CITRATE 300 ML BTL PO ONE (02:30)
[2021-09-07] MEDS ORDERED: CEPH-588 PO (02:42)
[2021-09-07 03:51] VITALS: BP 132/72
--- NOTE | 2021-09-07 03:55 | NUR ---
PATIENT STABLE NOT COMPLAINING OF PAIN VITAL SIGNS IN NORMAL LIMITS ALL DC INSTRUCTION GAVE //DiCaprio RN
== END 2021-09-07 03:42 | disposition home or self-care (01) ==
LOC: MED 20:14
DX: R10.9 Unspecified abdominal pain (principal); R07.9 Chest pain, unspecified; F41.9 Anxiety disorder, unspecified; J44.9 Chronic obstructive pulmonary disease, unspecified; E11.9 Type 2 diabetes mellitus without complications; I10 Essential (primary) hypertension; Z79.899 Other long term (current) drug therapy; Z90.49 Acquired absence of other specified parts of digestive tract
CPT/HCPCS: 36415; 74022; 80053; 81001; 83605; 84484; 85025; 87040; 87086; 93005; 96365; 96366; 99285; J0696; J7030